=== PATIENT | female | born 1970 | race Caucasian/White ===

== ENCOUNTER 2021-11-07 07:56 | Day surgery (SDC) | payer OTHER ==
[2021-11-03 16:08] VITALS: BMI 22.9
[2021-11-07] MEDS ORDERED: PROPOFOL 0 ML ONE (10:03)
[2021-11-07] MEDS ORDERED: PROPOFOL 40 ML ONE (10:56)
== END 2021-11-07 12:07 | disposition home or self-care (01) ==
LOC: CSHSDC 07:56
PROVIDERS: ATTEND Internal Medicine Gastroenterology
PROC: 0DJD8ZZ Inspection of Lower Intestinal Tract, Via Natural or Artificial Opening Endoscopic (ICD-10-PCS; principal; 2021-11-07)
DX: Z12.11 Encounter for screening for malignant neoplasm of colon (principal); K57.30 Diverticulosis of large intestine without perforation or abscess without bleeding; I10 Essential (primary) hypertension; E78.5 Hyperlipidemia, unspecified; E11.9 Type 2 diabetes mellitus without complications; Z87.891 Personal history of nicotine dependence; Z79.899 Other long term (current) drug therapy
CPT/HCPCS: J2704